=== PATIENT | male | born 1975 | race Caucasian/White ===

== ENCOUNTER 2018-02-13 09:46 | Emergency (ER) | payer OTHER ==
[2018-02-13 10:31] LABS: PLATELET COUNT 177 10^3/uL (150-400)
[2018-02-13] MEDS ORDERED: NS 1,000 ML IV ONE (10:36)
[2018-02-13] MEDS ORDERED: FAMOTIDINE 20 MG/NACL 50 ML IV ONE (10:44)
[2018-02-13] MEDS ORDERED: HYDROmorphONE/DILAUDID 2 MG/ML INJ IVP ONE (10:44)
[2018-02-13] MEDS ORDERED: ONDANSETRON 4 MG/2 ML VIAL IVP ONE (10:44)
--- NOTE | 2018-02-13 10:50 | EDPHY ---
H & P Time Seen by Provider: 02/13/18 10:33 HPI/ROS: HPI Abdominal pain. 42-year-old male by private vehicle with his . This patient reports that he started have being mid epigastric abdominal pain starting on Saturday after he ate a pork Burrito. He reports the pain has continued since then and worsen significantly over the last 24 hr. He has been seen by his primary care physician twice this week for this pain. He reports that his blood work was unremarkable and his urinalysis showed some blood. He reports that since last night the pain has gotten much worse he reports having chills with the pain. He has had nausea but no vomiting. Last meal was last night. He describes the pain now as extending from his epigastric area down through his testicles and worst on the left side and left lower quadrant. He describes it as a cramping and sharp pain. Denies any bloody stool. Last bowel movement was this morning. No diarrhea. No abdominal surgical history. ROS: Constitutional: No fever, no chills. No weakness. Eyes: No discharge. No changes in vision. ENT: No sore throat. No nasal congestion or rhinorrhea. Respiratory: No cough. No shortness of breath. Cardiac: No chest pain, no palpitations. Gastrointestinal: As above, no vomiting, no diarrhea. Genitourinary: No hematuria. He has had some dysuria with concentrated urine. Musculoskeletal: No back pain. No neck pain. No myalgias or arthralgias. Skin: No rashes. Neurological: No headache. No focal weakness or altered sensation. Past medical history: Diverticulitis. Leukopenia. Social history: Nonsmoker. Here with his . Denies alcohol. Physical Exam: General Appearance: Alert, he appeared comfortable. This patient is responding to questions appropriately and in full sentences. This patient appears well-hydrated and well-nourished. Eyes: Pupils equal and round no pallor or injection. No lid edema, erythema or injection. Respiratory: There are no retractions, lungs are clear to auscultation with good air movement bilaterally. Cardiovascular: Regular rate and rhythm. No murmur. Gastrointestinal: Abdomen is soft with moderate tenderness on palpation of the mid epigastric extending down into the mid abdomen and periumbilical area and into the left lower quadrant, no masses, bowel sounds normal. No focal tenderness at McBurney's point. No Aranda sign. : Testicles of normal lie. No clinical evidence of torsion. No masses. Uncircumcised penis without lesions. Neurological: Motor sensory function is grossly intact. Cranial nerves are normal. Gait is normal. Skin: Warm and dry, no rashes. Musculoskeletal: Neck is supple and nontender. Extremities are symmetrical. All joints range without pain or impingement. Psychiatric: No agitation. No depression. Database: EKG: Imaging: CT scan of abdomen and pelvis with IV contrast: Diverticulitis. No abscess. No free air. CT otherwise unremarkable. Results were discussed with staff radiologist Dr. Randy Aldana. Procedures: Emergency department course: Vital signs reviewed. He is moderately hypertensive. Vital signs otherwise normal. He was started on IV normal saline with 1 L to be given over the next hour. He was initially given 20 mg of IV Pepcid, 0.5 mg of IV hydromorphone and 4 mg of IV Zofran. 12:25 p.m., patient re-evaluated. Results of his emergency department workup and diagnosis of diverticulitis discussed with him. Medication allergies reviewed. He was given 500 mg of ciprofloxacin and 500 mg of Flagyl orally for initial antibiotic treatment. His pain is well controlled at this time. I feel he is safe for discharge and follow up with his primary care physician. I will prescribe him with ciprofloxacin and Flagyl for outpatient treatment. He feels comfortable with this plan. Return to emergency department precautions and follow-up discussed with him. All of his questions were answered. He was discharged in good condition. All interviews were done through a automation clerk. Differential Diagnosis: The differential diagnosis on this patient includes but is not limited to diverticulitis, urinary tract infection, pancreatitis. This represents a partial list of diagnoses considered. These considerations are based on history , physical exam, past history, reassessment and diagnostic testing. Smoking Status: Never smoked Constitutional: Initial Vital Signs Temperature (C) 36.9 C 02/13/18 09:49 Heart Rate 88 02/13/18 09:49 Respiratory Rate 18 02/13/18 09:49 Blood Pressure 153/90 H 02/13/18 09:49 O2 Sat (%) 95 02/13/18 09:49 O2 Delivery Mode Room Air Allergies/Adverse Reactions: No Known Allergies Allergy (Verified 02/13/18 09:48) Home Medications: Medication Instructions Recorded Ciprofloxacin [Cipro] 500 mg PO BID #14 tab 02/13/18 Docusate Sodium [Colace 100 MG (*)] 100 mg PO TID #20 cap 02/13/18 Hydrocodone/APAP 5/325 [[place] 1 - 2 tab PO Q4-6PRN PRN #7 tab 02/13/18 5/325 (*)] metroNIDAZOLE [Flagyl 500 mg (*)] 500 mg PO TID #30 tab 02/13/18 Medical Decision Making - Diagnostics Imaging Results: Imaging Impressions Abdomen CT 02/13/18 10:45 Impression: 1. Sigmoid diverticulitis without perforation or abscess. Please ensure the patient is current with colonoscopy screening. 2. Decreased splenomegaly. 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 4. Additional findings as above. Findings discussed with Mumtaz Vanessa PA-C, answering for Pérez Nash MD, on 02/13/2018 at 12:04. - Data Points Laboratory Results: Laboratory Results 02/13/18 10:19 02/13/18 10:19 02/13/18 02/13/18 02/13/18 10:24 10:19 10:19 WBC 9.64 10^3/uL H 10^3/uL (3.80-9.50) RBC 4.59 10^6/uL 10^6/uL (4.40-6.38) Hgb 13.0 g/dL L g/dL (13.7-17.5) Hct 39.4 % L % (40.0-51.0) MCV 85.8 fL fL (81.5-99.8) MCH 28.3 pg pg (27.9-34.1) MCHC 33.0 g/dL g/dL (32.4-36.7) RDW 13.4 % % (11.5-15.2) Plt Count 177 10^3/uL 10^3/uL (150-400) MPV 9.5 fL fL (8.7-11.7) Neut % (Auto) 71.5 % % (39.3-74.2) Lymph % (Auto) 17.4 % % (15.0-45.0) [place] % (Auto) 9.6 % % (4.5-13.0) Eos % (Auto) 0.7 % % (0.6-7.6) Baso % (Auto) 0.4 % % (0.3-1.7) Nucleat RBC Rel Count 0.0 % % (0.0-0.2) Absolute Neuts (auto) 6.88 10^3/uL H 10^3/uL (1.70-6.50) Absolute Lymphs (auto) 1.68 10^3/uL 10^3/uL (1.00-3.00) Absolute Monos (auto) 0.93 10^3/uL H 10^3/uL (0.30-0.80) Absolute Eos (auto) 0.07 10^3/uL 10^3/uL (0.03-0.40) Absolute Basos (auto) 0.04 10^3/uL 10^3/uL (0.02-0.10) Absolute Nucleated RBC 0.00 10^3/uL 10^3/uL (0-0.01) Immature Gran % 0.4 % % (0.0-1.1) Immature Gran # 0.04 10^3/uL 10^3/uL (0.00-0.10) Sodium 141 mEq/L mEq/L (135-145) Potassium 4.0 mEq/L mEq/L (3.5-5.2) Chloride 103 mEq/L mEq/L (97-110) Carbon Dioxide 29 mEq/l mEq/l (22-31) Anion Gap 9 mEq/L mEq/L (8-16) BUN 9 mg/dL mg/dL (7-23) Creatinine 0.6 mg/dL L mg/dL (0.7-1.3) Estimated GFR > 60 Glucose 120 mg/dL H mg/dL (70-100) Calcium 8.6 mg/dL mg/dL (8.5-10.4) Total Bilirubin 1.3 mg/dL mg/dL (0.1-1.4) Conjugated Bilirubin 0.4 mg/dL mg/dL (0.0-0.5) Unconjugated Bilirubin 0.9 mg/dL mg/dL (0.0-1.1) AST 57 IU/L IU/L (17-59) ALT 76 IU/L H IU/L (21-72) Alkaline Phosphatase 103 IU/L IU/L (38-126) Total Protein 7.6 g/dL g/dL (6.3-8.2) Albumin 4.2 g/dL g/dL (3.5-5.0) Lipase 159 IU/L IU/L (23-300) Urine Color YELLOW Urine Appearance CLEAR Urine pH 8.0 H (5.0-7.5) Ur Specific [place] 1.008 (1.002-1.030) Urine Protein NEGATIVE (NEGATIVE) Urine Ketones NEGATIVE (NEGATIVE) Urine Blood 1+ H (NEGATIVE) Urine Nitrate NEGATIVE (NEGATIVE) Urine Bilirubin NEGATIVE (NEGATIVE) Urine Urobilinogen NEGATIVE EU EU (0.2-1.0) Ur Leukocyte Esterase NEGATIVE (NEGATIVE) Urine RBC 1-3 /hpf /hpf (0-3) Urine WBC NONE SEEN /hpf /hpf (0-3) Ur Epithelial Cells NONE SEEN /lpf /lpf (NONE-1+) Urine Glucose NEGATIVE (NEGATIVE) Medications Given: Discontinued Medications Acetaminophen (Tylenol) 1,000 mg PO EDNOW ONE Stop: 02/13/18 12:29 Last Admin: 02/13/18 12:32 Dose: 1,000 mg Ciprofloxacin (Cipro) 500 mg PO EDNOW ONE PRN Reason: Protocol Stop: 02/13/18 12:27 Last Admin: 02/13/18 12:33 Dose: 500 mg Hydromorphone HCl (Dilaudid) 0.5 mg IVP EDNOW ONE Stop: 02/13/18 10:45 Last Admin: 02/13/18 11:00 Dose: 0.5 mg Sodium Chloride (Ns) 1,000 mls @ 0 mls/hr IV EDNOW ONE; Wide Open PRN Reason: Protocol Stop: 02/13/18 10:37 Last Admin: 02/13/18 10:58 Dose: 1,000 mls Famotidine/Sodium Chloride (Pepcid 20 Mg (Premix)) 50 mls @ 200 mls/hr IV EDNOW ONE Stop: 02/13/18 10:58 Last Admin: 02/13/18 11:02 Dose: 50 mls Metronidazole (Flagyl) 500 mg PO EDNOW ONE PRN Reason: Protocol Stop: 02/13/18 12:29 Last Admin: 02/13/18 12:33 Dose: 500 mg Ondansetron HCl (Zofran) 4 mg IVP EDNOW ONE Stop: 02/13/18 10:45 Last Admin: 02/13/18 10:58 Dose: 4 mg Departure - Departure Disposition: Home, Routine, Self-Care Clinical Impression: Diverticulitis Condition: Good Instructions: Narcotic-Analgesic/Acetaminophen (By mouth), Diverticulitis (ED) Additional Instructions: Read and follow provided instructions. Leer y seguir las instrucciones proveidaas. Follow-up with your primary care physician in 1-2 days for re-evaluation. Maranda de seguimiento con kenny DrAndrés de cuidado primario en 1-2 heredia para re- evaluacion. Take medication as prescribed through entire course of treatment. Rodo kenny medicina cinthya recetada flaco el curso entero de tratamiento. Ibuprofen dosin mg every 6 hours with meals for the next 3 days only. Take only as needed for pain. Dosis de Ibuprofen: 600 mg cada 6 horas con comidas para los proximos 3 heredia. Rodo solamente cuando necesario para dolor. Return to the emergency department for worsening pain, fever, vomiting, blood in your stool or other serious concerns. Regresar a la [facility] para empeoramiento de dolor, fiebre, vomito, sandip en el excremento u otra preocupacion seria. Referrals: [facility],. [Clinic] - As per Instructions Stand Alone Forms: Work Excuse Prescriptions: Ciprofloxacin [Cipro] 500 mg PO BID #14 tab Docusate Sodium [Colace 100 MG (*)] 100 mg PO TID #20 cap Hydrocodone/APAP 5/325 [[place] 5/325 (*)] 1 - 2 tab PO Q4-6PRN PRN #7 tab PRN Reason: Pain, Moderate metroNIDAZOLE [Flagyl 500 mg (*)] 500 mg PO TID #30 tab Print Language: Citizen [place]
[2018-02-13] MEDS ORDERED: IOPAMIDOL (ISOVUE-300) 100 ML BTL ONE (11:00)
[2018-02-13 12:25] VITALS: BP 143/91
[2018-02-13] MEDS ORDERED: CIPROFLOXACIN 500 MG TAB PO ONE (12:26)
[2018-02-13] MEDS ORDERED: ACETAMINOPHEN 500 MG TAB PO ONE (12:28)
[2018-02-13] MEDS ORDERED: metroNIDAZOLE 500 MG TAB PO ONE (12:28)
== END 2018-02-13 13:18 | disposition home or self-care (01) ==
DX: K57.92 Diverticulitis of intestine, part unspecified, without perforation or abscess without bleeding (principal); E86.9 Volume depletion, unspecified
CPT/HCPCS: 96365; J1170; J2405; Q9967